=== PATIENT | male | born 1975 | race Caucasian/White ===

== ENCOUNTER → 2024-03-11 10:48 | Outpatient (REF) | payer BC, SELFPAY | LOC: HWRAD 10:48 | PROVIDERS: ATTENDING PHYSICIAN Family Medicine | DX: N50.812 Left testicular pain (principal) | CPT/HCPCS: 76870; 93976 ==

== ENCOUNTER → 2024-06-05 11:24 | Outpatient (REF) | payer BC, SELFPAY | LOC: HWRAD 11:24 | PROVIDERS: ATTENDING PHYSICIAN Specialist; FAMILY PHYSICIAN Family Medicine | DX: N50.819 Testicular pain, unspecified (principal); R10.2 Pelvic and perineal pain | CPT/HCPCS: 74178; Q9967 ==